=== PATIENT | male | born 1990 | race Caucasian/White ===

== ENCOUNTER 2024-06-08 19:03 | Emergency (ER) | payer MEDICAID ==
[~2024-06-08] VITALS: Ht 172.7 cm; Wt 70.0 kg
[2024-06-08 21:11] VITALS: PULSE 78; RESP 16; O2SAT 97
[2024-06-08] MEDS: ALBUTEROL (0.083%) 2.5MG/3ML NEB HHN ONE (21:11)
[2024-06-08] MEDS ORDERED: P50 MT (22:05)
[2024-06-08] MEDS ORDERED: ALBU18HF2 IH (22:05)
[2024-06-08] MEDS ORDERED: IBUP-2029 MT (22:05)
[2024-06-08] MEDS: DIPHENHYDRAMINE 25MG CAPSULE PO ONE (22:10)
[2024-06-08] MEDS: METHYLPREDNISOLONE SOD SUCC 125MG/2ML (ACT-O-VIAL) IM STA (22:10)
[2024-06-08] MEDS: IBUPROFEN 600MG TABLET PO ONE (22:10)
[2024-06-08 22:53] VITALS: BP 130/86; PULSE 80; RESP 16; TEMP 36.50292; O2SAT 97
== END 2024-06-08 22:54 | disposition home or self-care (01) ==
LOC: ER 19:03
DX: S39.013A Strain of muscle, fascia and tendon of pelvis, initial encounter (principal); R05.9 Cough, unspecified; R06.02 Shortness of breath; X58.XXXA Exposure to other specified factors, initial encounter; Y93.89 Activity, other specified; Y92.89 Other specified places as the place of occurrence of the external cause; Y99.8 Other external cause status
CPT/HCPCS: 71045; 94640; 96372; 99283; Q0163; J2919; Z7610 ×3